=== PATIENT | male | born 1990 | race African-American/Black ===

== ENCOUNTER 2021-11-21 22:26 | Emergency (ER) | payer MEDICAID ==
[~2021-11-21] VITALS: Ht 182.9 cm; Wt 88.0 kg
[2021-11-21 23:05] VITALS: BP 132/78
[2021-11-22] MEDS ORDERED: IBUP-2029 MT ×3 (00:05→00:18)
[2021-11-22] MEDS ORDERED: BENZ11.95 TOP ×3 (00:05→00:18)
[2021-11-22] MEDS ORDERED: T3 PO ×3 (00:05→00:18)
[2021-11-22] MEDS ORDERED: AMOX-424 MT ×3 (00:05→00:18)
== END 2021-11-22 00:24 | disposition home or self-care (01) ==
LOC: ER 22:26
DX: K04.7 Periapical abscess without sinus (principal)
CPT/HCPCS: 99283